=== PATIENT | female | born 1950 | race Caucasian/White ===

== ENCOUNTER 2017-05-23 02:05 | Outpatient (CLI) | payer MEDICARE, OTHER | END 2017-05-23 02:06 | disposition short-term general hospital (02) | LOC: EMS 02:05 | PROVIDERS: ATTEND Surgery | DX: R55 Syncope and collapse (principal) | CPT/HCPCS: A0425; A0427; A0888 ==

== ENCOUNTER 2018-08-06 02:39 | Outpatient (CLI) | payer MEDICARE, OTHER | END 2018-08-06 02:40 | disposition short-term general hospital (02) | LOC: EMS 02:39 | PROVIDERS: ATTEND Surgery | DX: R55 Syncope and collapse (principal); R25.2 Cramp and spasm; R11.0 Nausea; R00.1 Bradycardia, unspecified | CPT/HCPCS: A0425; A0427; A0888 ==